=== PATIENT | female | born 1980 | race Caucasian/White ===

== ENCOUNTER → 2019-10-15 17:06 | Outpatient (CLI) | payer MEDICAID, SELFPAY ==
[2019-10-21 20:45] LABS: HPV Reflexed? NOT INDICATED
== END ==
PROVIDERS: Referring Provider Obstetrics & Gynecology; Visit Provider Obstetrics & Gynecology
DX: Z12.4 Encounter for screening for malignant neoplasm of cervix (principal)
CPT/HCPCS: 88175; G0145

== ENCOUNTER → 2021-03-08 11:43 | Outpatient (CLI) | payer MEDICAID, SELFPAY ==
[2021-03-08 15:02] LABS: Absolute Lymphocyte Count 1.27 X10^3/uL (0.83-4.51); Absolute Neutrophil Count 3.6 X10^3/uL (2.0-7.7); Basophil# 0.02 X10^3/uL; Basophil% 0.4 % (0-1); Eosinophil# 0.04 X10^3/uL; Eosinophils% 0.7 % (0-5); Hematocrit 38.8 % (37-47); Hemoglobin 12.6 g/dL (12.0-15.0); Lymphocyte # 1.27 X10^3/ul (0.83-4.51); Lymphocyte % 23.6 % (19-41); Mean Corp Hgb Conc 32.5 g/dL (32-36); Mean Corpuscular Hgb 29.6 pg (27.0-32.0); Mean Corpuscular Volume 91.3 fL (81-99); Mean Platelet Vol. 11.2 fl (6.2-12.0); Monocyte# 0.44 X10^3/uL; Monocyte% 8.2 % (0-10); NRBC Flagged by Analyzer 0 % (0-5); Neutrophil # 3.58 X10^3/uL (2.7-7.7); Neutrophil % 66.7 % (47-70); Platelet Count 276 K/mm3 (150-450); RBC Distribution Width CV 13.8 % (11.6-14.6); RBC Distribution Width SD 46.5 fl (35.1-43.9); Red Blood Count 4.25 M/mm3 (4.2-5.4); White Blood Count 5.4 K/mm3 (4.4-11.0)
[2021-03-08 15:22] LABS: Vitamin D,25 Hydroxy 40.5 ng/mL
[2021-03-08 15:24] LABS: Hemoglobin A1c 5.3 % (3.8-5.6)
[2021-03-08 15:43] LABS: ALB/GLOB Ratio 0.9 RATIO (0.9-2.4); AST(SGOT) 12 U/L (15-37); Alanine Aminotransfer ALT/SGPT 16 U/L (13-56); Albumin, Serum 3.3 g/dL (3.2-5.0); Alkaline Phosphatase 72 U/L (45-117); Anion Gap 8 (5-15); BUN 8 mg/dL (7-18); BUN/Creat Ratio 10.6 RATIO (10-20); Calcium,Total 8.6 mg/dL (8.5-10.1); Chloride 105 mmol/L (98-107); Cholesterol 157 mg/dL (200); Creatinine, Serum 0.76 mg/dL (0.55-1.02); EST Glomerular Filtration Rate 90 mL/min (>60); Est Glom Filt Rate - Afr Amer 109 mL/min (>60); Globulin 3.7 g/dL (2.2-4.2); Glucose 89 mg/dL (74-106); High Density Lipoprotein 57 mg/dL; Sodium Level 139 mmol/L (136-145); Thyroid Stim Hormone (TSH) 0.94 uIU/mL (0.358-3.74); Triglycerides 55 mg/dL; Very Low Density Lipoprotein 11 mg/dL (5-40)
== END ==
PROVIDERS: PCP Internal Medicine; Referring Provider Internal Medicine; Visit Provider Internal Medicine
DX: Z13.220 Encounter for screening for lipoid disorders (principal); Z13.1 Encounter for screening for diabetes mellitus; E55.9 Vitamin D deficiency, unspecified
CPT/HCPCS: 36415; 80053; 80061; 82306; 83036; 84443; 85025

== ENCOUNTER 2022-01-25 03:57 | Emergency (ER) | payer MEDICAID, SELFPAY ==
[2022-01-25 03:59] VITALS: BP 135/80; PULSE 74; RESP 16; TEMP 36.6; O2SAT 98; BMI 23.1
[2022-01-25 04:54] LABS: Absolute Lymphocyte Count 1.38 X10^3/uL (0.83-4.51); Absolute Neutrophil Count 3.9 X10^3/uL (2.0-7.7); Basophil# 0.03 X10^3/uL; Basophil% 0.5 % (0-1); Eosinophil# 0.06 X10^3/uL; Hematocrit 32.7 % (37-47); Hemoglobin 10.5 g/dL (12.0-15.0); Lymphocyte # 1.38 X10^3/ul (0.83-4.51); Mean Corp Hgb Conc 32.1 g/dL (32-36); Mean Corpuscular Hgb 27.3 pg (27.0-32.0); Mean Corpuscular Volume 85.2 fL (81-99); Mean Platelet Vol. 10.7 fl (6.2-12.0); NRBC Flagged by Analyzer 0 % (0-5); Neutrophil # 3.91 X10^3/uL (2.7-7.7); Neutrophil % 65.2 % (47-70); Platelet Count 286 K/mm3 (150-450); RBC Distribution Width CV 13.5 % (11.6-14.6); Red Blood Count 3.84 M/mm3 (4.2-5.4)
[2022-01-25 04:57] LABS: Internal QC Validated? YES +Cl - CLEAR BKGD; Pregnancy, Serum, hCG Quali. NEGATIVE Negative
[2022-01-25 05:01] LABS: Anion Gap 6 (5-15); BUN 13 mg/dL (7-18); BUN/Creat Ratio 16.8 RATIO (10-20); Calcium,Total 8.1 mg/dL (8.5-10.1); Chloride 110 mmol/L (98-107); Creatinine, Serum 0.78 mg/dL (0.55-1.02); EST Glomerular Filtration Rate 87 mL/min (>60); Est Glom Filt Rate - Afr Amer 105 mL/min (>60); Estimated Creatinine Clearance 88.85 ml/min; Glucose 100 mg/dL (74-106); Sodium Level 142 mmol/L (136-145)
[2022-01-25 05:04] LABS: International Normalized Ratio 1.1; Prothrombin Time (Protime)PT. 13.7 SECONDS (11.7-14.9)
[2022-01-25 05:05] LABS: Partial Thromboplast Time 30.2 Seconds (24.1-36.2)
--- NOTE | 2022-01-25 05:10 | EDS_ITS ---
HPI HPI - Female History of Present Illness Chief Complaint: Vag Bleeding Narrative Narrative: Patient is a 41-year-old female who states for the past few months she has been having persistent vaginal bleeding. She states it gets to the point where she will pass large clots. She denies any history of bleeding disorder or blood thinner use. She states that she has not seen DIELECTRIC TESTING MACHINE OPERATOR yet for this but is scheduled to see them in the next 1 to 2 weeks. She states that she has not any type of hormonal use/ control. She does not believe she is and has no concern for vaginal infection/STD. She denies any syncopal events associated with this. She reports she was talking to her friend this evening/morning and they wanted her to be evaluated sooner than the DIELECTRIC TESTING MACHINE OPERATOR and therefore she presents to the emergency department at this time [facility] Medical History COVID-19 Allergy/AdvReac Type Severity Reaction Status Date / Time No Known Allergies Allergy Verified 01/25/22 03:59 Family History (Updated 03/08/21 @ 10:49 by Alisa Hoffman) Other Diabetes Thyroid disorder Social History (Updated 03/08/21 @ 10:49 by Alisa Hoffman) Smoking Status: Never smoker alcohol intake: current alcohol intake frequency: holidays/special occasions only substance use type: does not use ROS ROS ED Constitutional Constitutional ED: Denies chills or fever(s) Eyes Eyes: Denies change in vision ENT ENT ED: Denies sore throat Cardiovascular Cardiovascular: Denies chest pain, palpitations or racing heartbeat Respiratory/Chest Respiratory/Chest: Denies cough or dyspnea Gastrointestinal Gastrointestinal: Denies abdominal pain, diarrhea, nausea or vomiting Genitourinary Genitourinary ED: Reports other Details: Positive vaginal bleeding ; Denies dysuria Musculoskeletal Musculoskeletal: Denies myalgias Integumentary Denies rash Neurologic Neurologic: Denies headache(s) Hematologic/Lymphatic Hematologic/Lymphatic: Denies easy bleeding or easy bruising EXAM Physical Exam Const Vital Signs: 01/25/22 03:59 Temperature 97.9 F Temperature Source Temporal Pulse Rate 74 Respiratory Rate 16 Blood Pressure 135/80 H Blood Pressure Mean 98 Pulse Ox 98 Oxygen Delivery Method Room Air Positive well nourished and well developed General Appearance ED: well developed Eyes PERRL and EOMs intact bilaterally General Eye ED: Yes pale conjunctiva Neck supple Resp normal respiratory effort and clear to auscultation bilaterally Cardio regular rate and regular rhythm Rate: other Other Details: Radial pulses are plus 2 out of 4 bilaterally are equal and symmetric GI normal to inspection, nondistended, normoactive bowel sounds, soft to palpation, non-tender and non-distended GI Narrative: No voluntary guarding or rigidity no pulsatile mass. No organomegaly noted. Auscultation: normoactive bowel sounds Palpation: soft Narrative: Normal external genitalia. Speculum exam reveals a closed cervical os with approximately a shot glass full of dark red blood within the vaginal vault. No discharge present. No signs of vaginal trauma. No adnexal pain or masses. Back/Spine no CVA tenderness Extremity normal to inspection Neuro oriented x3, CN's II-XII intact bilaterally and no sensory deficits noted Sensorium / Orientation: alert Motor Exam: strength 5/5 throughout Psych mental status grossly normal Skin no rashes or lesions noted Skin Narrative: Capillary refill is less than 3 seconds MDM MDM MDM Narrative Medical decision making narrative: Patient presented to the ER with stable vitals. She reported this bleeding has been going on for 1 to 2 months and she denied any history of bleeding disorder or blood thinner use. At this time she does not have any pain or concern for infection. She states there is a possibility of however. Therefore at this time I feel basic labs are warranted to make sure her bleeding times and blood volume are normal as well as the fact she is not . Labs show a drop of 2 points from 1 year ago with a hemoglobin of 12.6 in February 2021 which has reduced to 10.5 in 2021. This drop is consistent with her 1 to 2 months of persistent vaginal bleeding but is still well of blood with transfusion value. Patient's urine test is also negative and her bleeding times and platelet counts are normal. Therefore at this time as patient is not requiring her transfusion she is not and there are no obvious signs of infection I do not feel there is need for further work-up. Patient will follow-up with her DIELECTRIC TESTING MACHINE OPERATOR to discuss further testing and treatment options but with no need for blood transfusion and stable vitals she is otherwise safe for discharge. Lab Data Attestation: I reviewed the patient's lab results. Labs: Laboratory Results - last 24 hr 01/25/22 01/25/22 01/25/22 04:27 04:27 04:27 WBC 6.0 RBC 3.84 L Hgb 10.5 L Hct 32.7 L MCV 85.2 MCH 27.3 MCHC 32.1 RDW Std Deviation 42.0 RDW Coeff of Char 13.5 Plt Count 286 MPV 10.7 Immature Gran % (Auto) 0.300 Neut % (Auto) 65.2 Lymph % (Auto) 23.0 Mower % (Auto) 10.0 Eos % (Auto) 1.0 Baso % (Auto) 0.5 Absolute Neuts (auto) 3.9 Absolute Lymphs (auto) 1.38 Nucleated RBC % 0 PT 13.7 INR 1.1 APTT 30.2 Sodium 142 Potassium 4.0 Chloride 110 H Carbon Dioxide 26.0 Anion Gap 6 BUN 13 Creatinine 0.78 Estim Creat Clear Calc 88.85 Est GFR (MDRD) Af Amer 105 Est GFR (MDRD) Non-Af 87 BUN/Creatinine Ratio 16.8 Glucose 100 Calcium 8.1 L Serum , Qual 01/25/22 04:27 WBC RBC Hgb Hct MCV MCH MCHC RDW Std Deviation RDW Coeff of Char Plt Count MPV Immature Gran % (Auto) Neut % (Auto) Lymph % (Auto) Mower % (Auto) Eos % (Auto) Baso % (Auto) Absolute Neuts (auto) Absolute Lymphs (auto) Nucleated RBC % PT INR APTT Sodium Potassium Chloride Carbon Dioxide Anion Gap BUN Creatinine Estim Creat Clear Calc Est GFR (MDRD) Af Amer Est GFR (MDRD) Non-Af BUN/Creatinine Ratio Glucose Calcium Serum , Qual NEGATIVE Discharge Plan Triage Chief Complaint: Vag Bleeding ED Provider: Ponce Mena Dx/Rx/DC Orders Clinical Impression: DUB (dysfunctional uterine bleeding) Instructions: ED Dysfunctional Uterine Bleeding Primary Care Provider: Kalee Osborne Referrals: Myla Gill DO [Med Staff - Active Staff] - 1 Week Kalee Osborne MD [Primary Care Provider] - Activity Restrictions/Additional Instructions: Your blood work today shows that your hemoglobin/blood volume has dropped by approximately 2 points in the past year. You are still well above a transfusion value. Please follow-up with your DIELECTRIC TESTING MACHINE OPERATOR to discuss further causes and treatment options of your persistent vaginal bleed but if you develop increased pain fever or passing out please return to the ER for repeat evaluation Disposition Disposition: Home, Self Care
[2022-01-25 05:18] VITALS: BP 102/61; PULSE 66; RESP 15; O2SAT 98
== END 2022-01-25 05:28 | disposition home or self-care (01) ==
PROVIDERS: Emergency Provider Emergency Medicine; PCP Internal Medicine; Visit Provider Emergency Medicine
DX: N93.9 Abnormal uterine and vaginal bleeding, unspecified (principal); Z86.16 Personal history of COVID-19
CPT/HCPCS: 80048; 84703; 85025; 85610; 85730; 99282

== ENCOUNTER → 2022-02-03 | Outpatient (CLI) | payer MEDICAID, SELFPAY ==
[2022-02-03 16:33] LABS: Progesterone Level 0.96 ng/mL (See Comment)
[2022-02-03 16:40] LABS: Estradiol 100.2 pg/mL; Follicle Stimulating Hormone 9.2 mIU/mL; Luteinizing Hormone 9.1 mIU/mL; Thyroid Stim Hormone (TSH) 1.07 uIU/mL (0.358-3.74)
[2022-02-09 11:03] LABS: Anti-Mullerian Hormone,Serum 0.409 ng/mL (.)
== END | disposition home or self-care (01) ==
PROVIDERS: PCP Internal Medicine; Referring Provider Obstetrics & Gynecology; Visit Provider Obstetrics & Gynecology
DX: N39.0 Urinary tract infection, site not specified (principal); N93.9 Abnormal uterine and vaginal bleeding, unspecified; Z13.29 Encounter for screening for other suspected endocrine disorder
CPT/HCPCS: 36415; 82670; 83001; 83002; 83516; 84144; 84443; 87070; 87086; 87088; 87205

== ENCOUNTER → 2022-02-14 | Outpatient (CLI) | payer MEDICAID, SELFPAY ==
--- NOTE | 2022-02-14 11:01 | US_ITS ---
INDICATION: Menorrhagia EXAMINATION: Ultrasound US Transvaginal Non-OB TECHNIQUE: Transvaginal (for optimal evaluation of the adnexa) pelvic ultrasound was performed. Grayscale, spectral waveform, and color flow Doppler evaluation of the adnexa. COMPARISON: None. FINDINGS: UTERUS: Anteverted. The uterus demonstrates heterogeneous echogenicity but no evidence of well-defined myometrial masses is seen. Heterogeneous echogenicity visualized within the endometrial cavity and the cervix, a prominent joint with areas visualized within the cervix measuring 4.2 x 2.7 x 1.8 cm. The endometrial stripe demonstrates prominent heterogeneous echogenicity with a focal complex area measuring 1.5 x 1.5 x 0.9 cm and demonstrating increased vascularity, the endometrial stripe measures 1.0 cm. RIGHT OVARY: The right ovary demonstrates unremarkable echogenicity and unremarkable vascularity with a circumscribed the cyst visualized measuring 2.2 x 2.2 x 1.9 cm. The right ovary measures 4.1 x 3.2 x 1.9 cm. LEFT OVARY: The left ovary demonstrates unremarkable echogenicity and unremarkable vascularity, a hypervascular complex cyst is visualized in the left ovary measuring 2.8 x 2.9 x 2.5 cm. A simple cyst is visualized in the left ovary measuring 2.1 x 2.2 x 2.5 cm. The left ovary measures 5.4 x 3.3 x 3.4 cm. FREE FLUID: No evidence of free fluid in the pelvis.. US/Transvaginal Non- IMPRESSION: Complex heterogeneous area is visualized within the cervical canal and within the endometrium. Complex left ovarian cyst. Simple cysts are seen. Recommend follow-up evaluation with either ultrasound or MRI. Electronically Signed: Charly Puentes MD at 15:10 EDT ,
== END | disposition home or self-care (01) ==
LOC: US 10:59
PROVIDERS: PCP Internal Medicine; Referring Provider Obstetrics & Gynecology; Visit Provider Obstetrics & Gynecology
DX: N83.202 Unspecified ovarian cyst, left side (principal); N93.9 Abnormal uterine and vaginal bleeding, unspecified
CPT/HCPCS: 76830

== ENCOUNTER 2022-03-07 07:01 | Day surgery (SDC) | payer MEDICAID, SELFPAY ==
[2022-03-07] VITALS (8 sets, daily range): BP systolic 90–105; BP diastolic 48–80; PULSE 51–71; RESP 16–18; TEMP 21.6–36.5; O2SAT 100; BMI 22.7
--- NOTE | 2022-03-07 | CER_PTH ---
PATIENT: DINAH SHIRLEY [place] [facility] [id number] AGE/SX: 42/F ROOM: RE03/07/[address]: Dr. Myla Gill DO : 1980 BED: DIS: 03/07/2022 SPEC #: [id number] RECD: 03/07/22 13:29 STATUS: ALEX MEJIASDevan #: [id number] ADRI: 03/07/22 00:[address]: Myla Gill DEPT: SURGICAL PATHOLOGY RECD BY: Fede Vera ENTERED: 03/07/22 13:30 SP TYPE: CERV OTHR DR: Dr. Kalee Osborne MD Tissues: A - Uterine cervix, NOS B - Endometrium, NOS Procedures: Surgery Specimen Level IV HEADER OPERATION: Hysteroscopy, dilation and curettage PRE-OP DIAGNOSIS: Abnormal uterine bleeding TISSUE SUBMITTED: A ? Endocervical mass, B ? Endometrial curettings MICROSCOPIC DIAGNOSIS A. Endocervical mass, biopsy: Submucosal leiomyoma. See comment. B. Endometrial curettings: Proliferative endometrium. Fragments of benign ecto- and endocervical mucosa. SJ:leann 03/08/2022 COMMENT A. The leiomyoma shows overlying lining consisting of endometrial tissue, consistent with arising in the endometrial cavity, lower uterine segment. Correlation with clinical findings and appropriate follow-up are necessary. MICROSCOPIC DESCRIPTION Slides are reviewed. GROSS DESCRIPTION A - Received in fixative is one container labeled with the patient's name and designated endocervical mass. The specimen consists of a polypoid fragment of light boyd soft tissue measuring 3.3 x 2.2 x 2 cm. Serial sections reveal homogenous pink, cut surfaces. [employer] sections are submitted in two cassettes. B - Received in fixative is one container labeled with the patient's name and designated endometrial curettings. The specimen consists of multiple irregular fragments of red-boyd soft tissue that in aggregate measure 3 x 2 x 0.2 cm. The specimen is totally submitted in one cassette. / AM:leann 03/07/2022 TC:1 CPT: 35833 x2
[2022-03-07] MEDS: Lactated Ringers 1,000 ML 15 ML IV (07:20)
--- NOTE | 2022-03-07 07:41 | PCM.HP.BLA ---
History and Physical Date of Admission: 03/07/22 MR#: [id number] Acct: [id number] Name:DINAH DANIEL Rep #: [id number] : 1980 ? ? Provider: Dr. Myla Gill, DO Age/Sex:? 41/F ? ? Location: [facility] [place] Status: Signed Intake Vital Signs ? 03/02/2212:04 03/02/2212:09 Height 5 ft 6 in 5 ft 6 in Weight: ? 142 lb 6 oz BMI ? 22.9 BP ? 115/75 Intake Visit Reasons:?discuss US possible D&C [employer] Required: No Is patient in pain?: No Allergies No Known Allergies Allergy (Verified 03/02/22 12:03) Medications tranexamic acid 650 mg tablet (Lysteda) 1,300 mg PO TID 5 days #30 tabs 02/03/22 [Rx Confirmed 03/02/22] Post menopausal: No Patient : No : No PFSH Medical History? COVID-19 Family History? Grandmother DiabetesFather DiabetesGrandfather Lung cancerOther Breast cancer Social History? Smoking Status:? Never smoker alcohol intake:? current alcohol intake frequency: holidays/special occasions only substance use type:? does not use caffeine:? Yes what type of physical activity do you participate in:? none seatbelt use:? always do you feel safe at home:? Yes additional social history:? HPI discuss US possible D&C Details: DINAH SHIRLEY is a 41 year old who presents for discussion about ultrasound finding of possible endometrial polyp. She has tried the lysteda and she states that it helped slow the bleeding but only slightly. She denies shortness of breath, dizziness, or weakness. History ? ? ? 2 ? Elective abortions ? Hx Para ? ? ? 2 ? Spontaneous abortions ? Hx # Term Pregnancies ? Ectopic pregnancies ? Hx # Pregnancies ? Multiple births ? # of living children ? Past Pregnancies Del. Date Name GA/Weeks Outcome Route Bth Weight Gen [facility] F[facility] Unknown L[place] ? Unknown Kaylene ? ROS Const ROS Unobtainable: All systems reviewed & are unremarkable except as noted in H Resp Resp: Reports system reviewed and no additional complaints, except as documented; Denies cough GI GI: Reports as per HPI Psych Psych: Reports system reviewed and no additional complaints, except as documented Exam Const General: cooperative, healthy appearing, comfortable and no acute distress Resp Effort & Inspection: normal respiratory effort Skin General: no rashes or lesions noted Psych Appearance: grossly normal Speech and Movement: speech and movement normal Coding Level of Care Code Off vis,est,level 4 Diagnoses Abnormal uterine bleeding? N93.9 Assessment and Plan Assessment and Plan (1) Abnormal uterine bleeding: ?Status:?Acute ?Plan: ultrasound shows a thickened endometrium with possible polyp. The ovarian cysts were also discussed. Her left ovary has 2 cysts that are divided by a thin wall, one is hemorrhagic. After discussing the patient's diagnosis and treatment plan options, patient wishes to proceed with surgical management. Plan for hysteroscopy D&C.? I have discussed with the patient the risks, benefits, and alternatives of the procedure which include but are not limited to risks of anesthesia, bleeding, infection, possible damage to bowel, bladder, or surrounding vasculature which could lead to additional surgery to evaluate any complications.? Patient agrees to procedure and wishes to proceed.? ACOG/uptodate references given for additional information regarding procedure.? UPDATE- I have seen the patient and performed any clinically relevant updates to the history and physical exam. Myla Gill, DO
[2022-03-07 07:42] LABS: Hematocrit 30.4 % (37-47); Hemoglobin 9.3 g/dL (12.0-15.0); Mean Corp Hgb Conc 30.6 g/dL (32-36); Mean Corpuscular Hgb 24.8 pg (27.0-32.0); Mean Corpuscular Volume 81.1 fL (81-99); Mean Platelet Vol. 10.5 fl (6.2-12.0); Platelet Count 368 K/mm3 (150-450); RBC Distribution Width SD 41.1 fl (35.1-43.9); Red Blood Count 3.75 M/mm3 (4.2-5.4); White Blood Count 4.7 K/mm3 (4.4-11.0)
[2022-03-07 07:50] LABS: Internal QC Validated? YES +Cl - CLEAR BKGD; Pregnancy, Urine Negative Negative
--- NOTE | 2022-03-07 09:04 | DCINST_ITS ---
Discharge Instructions Diet Discharge Diet: No restrictions Activity Discharge Activity: Return to Normal Activity, May Shower and May Take a Tub Bath (after 1 week) May resume sexual activity in: 1-2 weeks Weight Bearing Status: Weight bearing as tolerated Lifting Restrictions: none Dressing / Incision Call your doctor if you observe: Fever of 101 or Higher, Using more than 1 pad per hour, Shortness of breath and Uncontrolled pain Follow Up Care Please Follow Up With: Myla Gill DO When: Call [phone] to schedule appointment. Test Results: Test results from this visit will be discussed in further detail at your follow- up appointment, if applicable. Discharge Plan Admission Primary Reason for Your Visit: hysteroscopy dilation and curettage, removal of endocervical mass Attending Provider: Myla Gill Primary Care Provider: Kalee Osborne Discharge Orders/Prescriptions Prescriptions: New oxycodone-acetaminophen [Percocet] 5-325 mg tablet 1 tab PO Q6H PRN (Reason: pain) 3 Days Qty: 5 0RF ibuprofen 600 mg tablet 600 mg PO Q6H PRN (Reason: pain) 7 Days Qty: 30 0RF No Action tranexamic acid [Lysteda] 650 mg tablet 1,300 mg PO TID PRN (Reason: Bleeding) Rx Instructions: take on first day of menses x 5 days Referrals / Follow Up: Kalee Osborne MD [Primary Care Provider] - Disposition Disposition (needs filled in before D/C Order can be placed): Home, Self Care
--- NOTE | 2022-03-07 09:09 | PCM.OP.BLANK ---
Operative Report Date of Procedure: 03/07/22 preoperative diagnosis: postcoital bleeding, 3cm endocervical mass Postoperative diagnosis: postcoital bleeding, 3cm endocervical mass Surgeon: Dr. Myla Gill DO EBL: minimal urine output: 30cc findings: atrophic appearing uterus specimens removed: endometrial curettings and cervical mass Details of the procedure: Patient was prepped and draped in a normal sterile fashion under MAC anesthesia. A weighted speculum was placed in the vagina and the anterior lip of the cervix was grasped with a single-tooth tenaculum. A paracervical block was placed with 1% lidocaine. A large mass protruding through the cervix was noted. This was grasped with the polyp forceps device and removed by rotating the mass and gently tugging on it. The Cervix was noted to be dilated then at 2 cm. The hysteroscope was inserted into the uterus. The lining was fully visualized and noted to have an atrophic appearing lining . Uterine sounded to 9 cm. Curettage was performed and specimen was sent to pathology. All instruments were removed from the vagina and excellent hemostasis was noted. Patient was awoken and taken to recovery in stable condition. Multi Select Codes Urinary/Genital Urinary/Genital CPT Codes: 70687 Hysteroscopy,EMC, Polypectomy and Other Procedure See Report (removal of endocervical mass )
== END 2022-03-07 10:14 | disposition home or self-care (01) ==
LOC: SDC 07:02 → AC 07:03
PROVIDERS: Obstetrics & Gynecology; PCP Internal Medicine; Referring Provider Obstetrics & Gynecology; Visit Provider Obstetrics & Gynecology
PROC: 0UDB8ZZ Extraction of Endometrium, Via Natural or Artificial Opening Endoscopic (ICD-10-PCS; CPT 58558; principal; 2022-03-07 08:15)
DX: D25.0 Submucous leiomyoma of uterus (principal); N93.9 Abnormal uterine and vaginal bleeding, unspecified; Z86.16 Personal history of COVID-19
CPT/HCPCS: 58558; 00952; 81025; 85027; 88305; J7120; J2405

== ENCOUNTER → 2024-03-17 | Outpatient (CLI) | payer MEDICAID, SELFPAY ==
[2024-03-17 10:52] LABS: Vitamin D,25 Hydroxy 29.7 ng/mL
[2024-03-17 11:26] LABS: Cholesterol 179 mg/dL (200); Glucose 89 mg/dL (74-106); High Density Lipoprotein 67 mg/dL; Thyroid Stim Hormone (TSH) 0.939 uIU/mL (0.358-3.740); Triglycerides 62 mg/dL; Very Low Density Lipoprotein 12 mg/dL (5-40)
[2024-03-21 10:58] LABS: HPV APTIMA, High Risk Negative (Negative)
== END | disposition home or self-care (01) ==
LOC: WOBLAB 09:58
PROVIDERS: PCP Internal Medicine; Referring Provider Obstetrics & Gynecology; Visit Provider Obstetrics & Gynecology
DX: Z12.4 Encounter for screening for malignant neoplasm of cervix (principal); Z13.220 Encounter for screening for lipoid disorders; Z13.21 Encounter for screening for nutritional disorder; Z13.29 Encounter for screening for other suspected endocrine disorder; Z13.1 Encounter for screening for diabetes mellitus
CPT/HCPCS: 36415; 80061; 82306; 82947; 84443; 87624; 88175; G0145

== ENCOUNTER → 2024-03-27 | Outpatient (CLI) | payer MEDICAID, SELFPAY ==
--- NOTE | 2024-03-27 12:35 | BI_ITS ---
MAMMOGRAPHY - BILATERAL SCREENING REASON FOR EXAM: Female, 44 years old. Routine annual screening examination. PERTINENT HISTORY: Non-contributory. TECHNIQUE: Digital bilateral breast jillian (3D mammographic acquisition) in the CC and MLO projections. 2-D mediolateral oblique (MLO) and craniocaudad (CC) views of both breasts were obtained. CAD: Full Field Digital Mammography with Computer Added Detection was performed. COMPARISON: None. Baseline examination. FINDINGS: Breast Composition: The breasts are heterogeneously dense, which may obscure small masses. There are no dominant masses or suspicious calcifications. No other significant abnormalities are identified. BI/SCRN MAMM (CAD)W/JILLIAN BILAT IMPRESSION: Negative screening mammogram. Yearly followup mammogram recommended. (A) ASSESSMENT CATEGORY: BIRADS Category 1: Negative. A letter regarding these results will be sent to the patient by the facility within 30 days. Approximately 10% of breast cancers are not detected by mammography. A normal mammogram should not delay biopsy of a clinically suspicious abnormality. [id number] Electronically Signed: Mayank Crooks MD at 13:52 EDT ,
== END | disposition home or self-care (01) ==
LOC: OPBI 12:33
PROVIDERS: PCP Internal Medicine; Referring Provider Obstetrics & Gynecology; Visit Provider Obstetrics & Gynecology
DX: Z12.31 Encounter for screening mammogram for malignant neoplasm of breast (principal)
CPT/HCPCS: 77063; 77067